=== PATIENT | female | born 1990 | race Caucasian/White ===

== ENCOUNTER 2018-06-13 20:55 | Emergency (ER) | payer MEDICAID ==
[2018-06-13] MEDS: ALBUTEROL 0.5% (NEB) 2.5 MG/0.5 ML AMP INH (21:39)
[2018-06-13] MEDS: IPRATROPIUM (NEB) 0.5 MG/2.5 ML AMP INH (21:39)
[2018-06-13] MEDS: METHYLPREDNISOLONE 125 MG INJ IM (21:39)
== END 2018-06-13 23:02 | disposition home or self-care (01) ==
LOC: FTE 20:55
DX: J45.901 Unspecified asthma with (acute) exacerbation (principal)
CPT/HCPCS: 94644; 96372; 99284-25